=== PATIENT | male | born 1980 | race African-American/Black ===

== ENCOUNTER 2016-12-10 06:19 | Emergency (ER) | payer OTHER ==
[2016-12-10 06:36] VITALS: TEMP 98; O2SAT 99
--- NOTE | 2016-12-10 07:04 | ED.PDOC ---
History of Present Illness - General Chief Complaint: Problem Stated Complaint: girlfriend has an "infection" patient wants checke Time Seen by Provider: 12/10/16 07:01 Source: patient Exam Limitations: no limitations - History of Present Illness Initial Comments: wants testing bc girlfriend has a bacterial infection. she is not in the hospital. he does not know what kind of infection she has. he is asymptomatic. no symptoms at all. not high risk or immunocomprimisedd. no fever. feeling fine. Timing/Duration: other Improving Factors: nothing Worsening Factors: nothing Allergies/Adverse Reactions: Allergies NO KNOWN ALLERGY Allergy (Verified 12/10/16 06:32) Home Medications: Ambulatory Orders Losartan Potassium 100 mg PO DAILY 12/10/16 Review of Systems - Review of Systems Constitutional: States: no symptoms reported EENTM: States: no symptoms reported Respiratory: States: no symptoms reported Cardiology: States: no symptoms reported Gastrointestinal/Abdominal: States: no symptoms reported Genitourinary: States: no symptoms reported Musculoskeletal: States: no symptoms reported Skin: States: no symptoms reported Neurological: States: no symptoms reported Endocrine: States: no symptoms reported All other Systems: No Change from Baseline Past Medical History (General) - Patient Medical History Hx Asthma: No Hx Congestive Heart Failure: No Hx Hypertension: Yes Hx Diabetes: No Surgical History: no surgical history - Vaccination History Hx Tetanus, Diphtheria Vaccination: No Hx Influenza Vaccination: No Hx Pneumococcal Vaccination: No Immunizations Up to Date: No - Social History Hx Alcohol Use: No Hx Substance Use: No Family Medical History - Family History Mother Family History: No Known Physical Exam - Physical Exam General Appearance: Alert, Comfortable, No apparent distress Eye Exam: bilateral normal Neck: full range of motion Respiratory: no respiratory distress, no accessory muscle use Cardiovascular/Chest: no edema Rectal Exam: deferred Extremity: normal range of motion, normal capillary refill Neurologic: alert, normal mood/affect, oriented x 3 Skin Exam: normal color Comments: Vital Signs - 24 hr 12/10/16 06:33 Temperature 98.0 F Pulse Rate [ 103 H monitor] Respiratory 18 Rate Blood Pressure 166/103 [Right Arm] O2 Sat by Pulse 99 Oximetry Progress - Progress Progress: 12/10/16 07:04 patient his here with concern over uncertain infection in his girlfriend. he needs to find out what infection she has so appropriate testing can be done if necessary. he is asymptomatic at this time. no sex until this is figured out. if it appears she has a sexually transmitted disease then he needs to follow up wt the public health department for full testing or with his primary care doctor. return if severe new symptoms develope 12/10/16 07:05 Departure - Departure Clinical Impression: Concern about infectious disease without diagnosis Disposition: Discharge to Home or Self Care Condition: Good Departure Forms: ED Discharge - Pt. Copy, Patient Portal Self Enrollment Diet: regular diet Activity: increase activity as tolerated Home Medications: Ambulatory Orders Losartan Potassium 100 mg PO DAILY 12/10/16 Additional Instructions: patient his here with concern over uncertain infection in his girlfriend. he needs to find out what infection she has so appropriate testing can be done if necessary. he is asymptomatic at this time. no sex until this is figured out. if it appears she has a sexually transmitted disease then he needs to follow up wt the public health department for full testing or with his primary care doctor. return if severe new symptoms develope. blood pressure is mildly elevated here and should be followed up with his primary care doctor.
[2016-12-10 07:14] VITALS: BP 155/96
== END 2016-12-10 07:12 | disposition home or self-care (01) ==
LOC: ER 06:19
DX: Z20.818 Contact with and (suspected) exposure to other bacterial communicable diseases (principal); I10 Essential (primary) hypertension